=== PATIENT | male | born 1940 | race Caucasian/White ===

== ENCOUNTER 2023-07-03 13:56 | Outpatient (RCR) | payer MEDICARE, OTHER, SELFPAY | END 2023-07-03 23:59 | disposition home or self-care (01) | LOC: RST 13:56 | PROVIDERS: ATTENDING PHYSICIAN Neurological Surgery; FAMILY PHYSICIAN Nurse Practitioner Family | DX: I69.318 Other symptoms and signs involving cognitive functions following cerebral infarction (principal); I69.398 Other sequelae of cerebral infarction; Z73.6 Limitation of activities due to disability | CPT/HCPCS: 97010; 97110; 97129; 97130; 97530; 97535 ==

== ENCOUNTER 2023-07-11 08:47 | Outpatient (RCR) | payer MEDICARE, OTHER, SELFPAY | END 2023-07-24 23:59 | disposition home or self-care (01) | LOC: RST 08:47 | PROVIDERS: ATTENDING PHYSICIAN Neurological Surgery; FAMILY PHYSICIAN Nurse Practitioner Family | DX: I69.351 Hemiplegia and hemiparesis following cerebral infarction affecting right dominant side (principal); I69.318 Other symptoms and signs involving cognitive functions following cerebral infarction; I69.310 Attention and concentration deficit following cerebral infarction; I69.314 Frontal lobe and executive function deficit following cerebral infarction; I69.312 Visuospatial deficit and spatial neglect following cerebral infarction; Z73.6 Limitation of activities due to disability | CPT/HCPCS: 97129; 97130; 97530; 97535 ==

== ENCOUNTER → 2025-03-24 09:56 | Outpatient (REF) | payer MEDICARE, OTHER, SELFPAY ==
[2025-03-26 01:58] LABS: CCP Antibody IgG/IgA 3 Units (0-19)
[2025-03-26 02:09] LABS: SSA 52 (Ro)(ENA) Ab, IgG 2 AU/mL (0-40); SSA 60 (Ro)(ENA) Ab, IgG 0 AU/mL (0-40); SSB (La)(ENA) Ab, IgG 0 AU/mL (0-40)
== END ==
LOC: REG 09:56
PROVIDERS: ATTENDING PHYSICIAN Nurse Practitioner Family
DX: M25.50 Pain in unspecified joint (principal); R68.2 Dry mouth, unspecified; Z00.00 Encounter for general adult medical examination without abnormal findings
CPT/HCPCS: 36415; 86200; 86235